=== PATIENT | female | born 1975 | race Caucasian/White ===

== ENCOUNTER 2016-11-30 12:42 | Emergency (ER) | payer OTHER ==
[~2016-11-30] VITALS: Ht 157.5 cm; Wt 61.6 kg
[~2016-11-30 12:42] MED LIST: Motrin PO; NAPROSYN500 MG PO; OXCARBAZEPINE300 MG PO; PERCOCET 7.51 TABLET PO; QUETIAPINE FUMA25 MG PO; SEROQUEL100 MG PO; SERTRALINE HCL50 MG PO; ULTRAM50 MG PO
[2016-11-30 15:36] VITALS: BP 132/78
== END 2016-11-30 15:36 | disposition home or self-care (01) ==
LOC: EME 12:42
DX: S83.91XA Sprain of unspecified site of right knee, initial encounter (principal); X50.9XXA Other and unspecified overexertion or strenuous movements or postures, initial encounter; Y93.89 Activity, other specified
CPT/HCPCS: 73564; 99281; 99284

== ENCOUNTER 2016-12-05 08:47 | Emergency (ER) | payer OTHER ==
[~2016-12-05] VITALS: Ht 157.5 cm; Wt 61.4 kg
[2016-12-05] MEDS ORDERED: NAPROSYN500 MG PO (09:08)
[2016-12-05 09:25] VITALS: BP 155/89
== END 2016-12-05 09:27 | disposition home or self-care (01) ==
LOC: EME 08:47
DX: M25.561 Pain in right knee (principal)
CPT/HCPCS: 99281; 99284

== ENCOUNTER 2017-06-25 08:47 | Day surgery (SDC) | payer OTHER ==
[~2017-06-25] VITALS: Ht 160 cm; Wt 61.2 kg
[2017-06-25 09:56] VITALS: BP 140/81
[2017-06-25 13:35] VITALS: BP 155/85
[2017-06-25 14:35] VITALS: BP 125/65
[2017-06-25 16:27] VITALS: BP 116/61
== END 2017-06-25 16:30 | disposition home or self-care (01) ==
LOC: SDC 08:47
PROC: 0QSP04Z Reposition Left Metatarsal with Internal Fixation Device, Open Approach (ICD-10-PCS; principal; 2017-06-25)
DX: M20.12 Hallux valgus (acquired), left foot (principal)
CPT/HCPCS: 73630; J0690; J1100; J1885; J2250; J2405; J3010; S0020